=== PATIENT | female | born 1960 | race Caucasian/White ===

== ENCOUNTER 2018-06-01 00:06 | Emergency (ER) | payer OTHER ==
[~2018-06-01] VITALS: Ht 165.1 cm; Wt 71.2 kg
[2018-06-01 00:07] VITALS: Ht 165.1 cm; Wt 71.2 kg
[2018-06-01 01:05] LABS: BASOPHIL % 0.7 % (0-2); PLATELET COUNT 231 x10^3mcL (130-400); RED CELL DISTRIBUTION WIDTH 14.5 % (11.5-14.5)
[2018-06-01 01:16] LABS: CARBON DIOXIDE 24.6 mmol/L (21-32); CHLORIDE SERUM 107 mmol/L (98-107); CREATININE SERUM 0.9 mg/dL (0.6-1.0); GFR1 > 60 mL/min; GLUCOSE SERUM 124 mg/dL (74-106); POTASSIUM SERUM 3.2 mmol/L (3.5-5.1); SODIUM SERUM 141 mmol/L (136-145)
[2018-06-01 01:25] LABS: ALKALINE PHOSPHATASE 165 U/L (46-116); ALT/SGPT 34 U/L (14-59); AST/SGOT 29 U/L (15-37); BILIRUBIN TOTAL 0.34 mg/dL (0.20-1.00); TOTAL PROTEIN, SERUM 6.4 g/dL (6.4-8.2)
[2018-06-01 01:31] LABS: ALBUMIN 2.7 g/dL (3.4-5.0)
[2018-06-01 02:33] LABS: microscopic required? NO
[2018-06-01 02:55] LABS: urine erythrocyte NEGATIVE (NEGATIVE)
[2018-06-01 05:19] VITALS: BP 138/82
== END 2018-06-01 05:19 | disposition home or self-care (01) ==
LOC: ED 00:06
PROVIDERS: Emergency Medicine
DX: C34.90 Malignant neoplasm of unspecified part of unspecified bronchus or lung (principal); R06.00 Dyspnea, unspecified; Z88.0 Allergy status to penicillin; Z88.1 Allergy status to other antibiotic agents
CPT/HCPCS: 85378; J7030; Q0092; Q9967